=== PATIENT | male | born 1990 | race African-American/Black ===

== ENCOUNTER 2024-10-31 11:37 | Emergency (ER) | payer SELFPAY ==
[2024-10-31] VITALS (21 sets, daily range): BP systolic 137–144; BP diastolic 89–93; PULSE 62–84; TEMP 36.7–37.1; O2SAT 94–100; BMI 29.5
--- NOTE | 2024-10-31 11:42 | ED_ITS ---
HPI HPI - General Adult General Chief complaint: Seizure Stated complaint: SEIZURES Time Seen by Provider: 10/31/24 11:39 Source: patient, family, EMR and other Source information: EMS Mode of arrival: ambulance Limitations: no limitations History of Present Illness HPI narrative: Patient had a witnessed seizure at home today. He has a history of seizure disorder and he stopped taking his his anticonvulsant couple years ago. He states he has been little sleep deprived lately. He denies alcohol use. His significant other came in short while later and stated that she witnessed this. He came down the stairs and appeared confused and then he leaned against a wall and started to fall but she grabbed him and lowered him gently to the ground. He stiffened up and had some shakes and was frothing at the mouth. She timed this and she states it all lasted about 8 minutes. She states she has had a couple seizures 2 years ago also. Patient had some bleeding from his mouth and has complained of pain in his tongue. Related Data Previous Rx's ?Medication ?Instructions ?Recorded levetiracetam 500 mg tablet 500 mg PO BID #60 tabs 10/31/24 (Keppra) Allergies Allergy/AdvReac Type Severity Reaction Status Date / Time No Known Drug Allergies Allergy Verified 10/31/24 11:43 Opioid HPI Opioid Management Most Recent Opioid Data: Last Pain Scale 7 10/31/24 11:54 10/31/24 Last ED Pain Assessment 10/31/24 11:54 Ur Phencyclidine Scrn Negative (NEGATIVE) 10/31/24 13:20 10/21 10/14 Review of Systems ROS Status of ROS 10 or more systems reviewed and unremark able except as noted in history and below [facility] Medical History Seizures ?R56.9 - Unspecified convulsions (ICD-10) Social History Little interest or pleasure in doing things: not at all Feeling down, depressed, or hopeless: several days Exam Narrative Exam Narrative: Patient is awake and alert upon arrival. He does not appear postictal. Pupils are equal and reactive. The patient has superficial lacerations on the right lateral side of the tongue but no active bleeding from the tongue. There is no C-spine tenderness. Lung sounds are clear to auscultation bilaterally with good air entry. Heart has regular rate and rhythm. Abdomen is soft nontender withou t organomegaly. There is no facial asymmetry. Patient is alert and oriented with intact and clear speech and mentation. He moves all extremities actively. Constitutional Vital Signs, click to edit/add: Last Vital Signs Temp 98.0 F 10/31/24 11:43 Pulse 73 10/31/24 14:20 Resp 15 10/31/24 14:20 BP 144/89 H 10/31/24 11:43 Pulse Ox 95 10/31/24 14:20 O2 Del Method Room Air 10/31/24 11:43 Course Vital Signs Vital signs: Vital Signs Pulse Rate 84 10/31/24 11:42 Respiratory Rate 11 L 10/31/24 11:42 Pulse Oximetry 97 10/31/24 11:42 Temperature 98.0 F 10/31/24 11:43 Pulse Rate 73 10/31/24 14:20 Respiratory Rate 15 10/31/24 14:20 Blood Pressure 144/89 H 10/31/24 11:43 Pulse Oximetry 95 10/31/24 14:20 Oxygen Delivery Method Room Air 10/31/24 11:43 Medical Decision Making MDM Narrative Medical decision making narrative: Patient presents to the ED after experiencing a major motor seizure at home. Baseline labs are fairly nondiagnostic and he has recovered quickly from his postictal. Judging by the fact that he has been alert and oriented upon arrival for me. He is bolused with 2 g of Keppra IV and upon discharge I am placing him on Keppra 500 mg twice a day. He is advised to seek follow-up with primary care physician of choice and neurologist of choice. Patient may return to the ED anytime for worsening symptoms. Lab Data Labs: Lab Results 10/31/24 10/31/24 10/31/24 Range/Units 11:58 13:20 13:31 WBC 5.2 (4.0-11.0) 10^3/uL RBC 6.42 H (4.70-6.10) 10^6/uL Hgb 17.6 (14.0-18.0) g/dL Hct 52.1 (42.0-54.0) % MCV 81.2 (80.0-94.0) fL MCH 27.4 (25.9-34.0) pg MCHC 33.8 (29.9-35.2) g/dL RDW 13.0 (11.0-15.0) % Plt Count 191 (150-450) 10^3/uL MPV 10.1 (9.5-13.5) fL Neut % (Auto) 74.6 (43.0-75.0) % Lymph % (Auto) 14.9 L (20.5-60.0) % [place] % (Auto) 5.9 (1.7-12.0) % Eos % (Auto) 2.9 (0.9-7.0) % Baso % (Auto) 1.3 (0.2-2.0) % Neut # (Auto) 3.9 (1.4-6.5) 10^3/uL Lymph # (Auto) 0.8 L (1.2-3.8) 10^3/uL [place] # (Auto) 0.3 (0.3-0.8) 10^3/uL Eos # (Auto) 0.2 (0.0-0.7) 10^3/uL Baso # (Auto) 0.1 (0.0-0.1) 10^3/uL Abs Immat Gran (auto) 0.02 (0.00-0.03) 10^3/uL Imm/Tot Granulo (auto) 0.4 (0.0-0.5) % Sodium 139 (136-145) mmol/L Potassium 4.5 (3.5-5.1) mmol/L Chloride 102 (98-107) mmol/L Carbon Dioxide 23.1 (21.0-32.0) mmol/L Anion Gap 18.4 BUN 11.0 (7.0-18.0) mg/dL Creatinine 1.41 H (0.70-1.30) mg/dL Est GFR ( Amer) >60 (>=60 mL/min/1.73m^2) Est GFR (Non-Af Amer) 59 L (>=60 mL/min/1.73m^2) BUN/Creatinine Ratio 7.8 Glucose 146 H (74-106) mg/dL Calcium 9.3 (8.5-10.1) mg/dL Total Bilirubin 0.7 (0.2-1.0) mg/dL AST 28 (15-37) U/L ALT 28 (16-63) U/L Alkaline Phosphatase 58 (46-116) U/L Troponin I High Sens 8.1 26.3 (4.0-76.1) pg/mL Total Protein 8.1 (6.4-8.2) g/dL Albumin 4.2 (3.4-5.0) g/dL Globulin 3.9 g/dL Albumin/Globulin Ratio 1.1 Urine Color Lt. yellow (YELLOW) Urine Clarity Clear (CLEAR) Urine pH 6.0 (5.0-9.0) Ur Specific [place] 1.025 (1.005-1.025) Urine Protein Negative (NEG/TRACE) mg/dL Urine Glucose (UA) Negative (NEGATIVE) mg/dL Urine Ketones Negative (NEGATIVE) mg/dL Urine Occult Blood Small A (NEGATIVE) Urine Nitrite Negative (NEGATIVE) Urine Bilirubin Negative (NEGATIVE) Urine Urobilinogen 0.2 (0.2-1.0) EU/dL Ur Leukocyte Esterase Negative (NEGATIVE) Urine RBC 0-2 (0-2) #/HPF Urine WBC 0-2 A (NONE SEEN) #/HPF Ur Squamous Epith Cells None seen (NONE/RARE) #/LPF Urine Crystals None seen (None Seen) #/HPF Urine Bacteria None seen (NONE SEEN) #/HPF Urine Casts None seen (NONE SEEN) #/LPF Urine Mucus None seen (NONE SEEN) Ur Culture Indicated? No Urine Opiates Screen Negative (NEGATIVE) Ur Buprenorphine Scrn Negative (NEGATIVE) Ur Oxycodone Screen Negative (NEGATIVE) Urine Methadone Screen Negative (NEGATIVE) Ur Barbiturates Screen Negative (NEGATIVE) U Tricyclic Antidepress Negative (NEGATIVE) Ur Phencyclidine Scrn Negative (NEGATIVE) Ur Amphetamines Screen Negative (NEGATIVE) U Methamphetamines Scrn Negative (NEGATIVE) U Benzodiazepines Scrn Negative (NEGATIVE) Urine Cocaine Screen Negative (NEGATIVE) U Cannabinoids Screen Positive A (NEGATIVE) Ethanol Quant <3 mg/dL Discharge Plan Discharge Chief Complaint: Seizure Clinical Impression: Generalized seizure Patient Disposition: Home, Self-Care Time of Disposition Decision: 14:28 Condition: Fair Mode of Transportation: Private Vehicle Prescriptions / Home Meds: New levetiracetam [Keppra] 500 mg tablet 500 mg PO BID Qty: 60 0RF Print Language: Somali Instructions: Recurrent Seizures in Adults (ED) Additional Instructions: Follow-up with primary care physician and neurologist of choice as soon as possible. Start taking Keppra 500 mg twice a day. Return for worsening symptoms. Referrals: Physician,Non-Staff, MD [Primary Care Provider] - 1 week
--- NOTE | 2024-10-31 11:45 | ECG_ITS ---
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
[2024-10-31] MEDS: 0.9 % SODIUM CHLORIDE 1,000 ML 125 ML IV (12:06)
[2024-10-31] MEDS: LEVETIRACETAM 2,000 MG in 0.9 % SODIUM CHLORIDE 100 ML 480 MG IV (12:09)
[2024-10-31 12:10] LABS: Basophils Absolute Auto 0.1 10^3/uL (0.0-0.1); Basophils Percent Auto 1.3 % (0.2-2.0); Eosinophils Absolute Auto 0.2 10^3/uL (0.0-0.7); Eosinophils Percent Auto 2.9 % (0.9-7.0); Hematocrit 52.1 % (42.0-54.0); Hemoglobin 17.6 g/dL (14.0-18.0); Immature Granulocytes Abs Auto 0.02 10^3/uL (0.00-0.03); Immature Granulocytes Pct Auto 0.4 % (0.0-0.5); Lymphocytes Absolute Auto 0.8 10^3/uL (1.2-3.8); Lymphocytes Percent Auto 14.9 % (20.5-60.0); Mean Corpuscular HGB Conc 33.8 g/dL (29.9-35.2); Mean Corpuscular Hemoglobin 27.4 pg (25.9-34.0); Mean Corpuscular Volume 81.2 fL (80.0-94.0); Mean Platelet Volume 10.1 fL (9.5-13.5); Monocytes Absolute Auto 0.3 10^3/uL (0.3-0.8); Monocytes Percent Auto 5.9 % (1.7-12.0); Neutrophils Absolute Auto 3.9 10^3/uL (1.4-6.5); Neutrophils Percent Auto 74.6 % (43.0-75.0); Platelet Count 191 10^3/uL (150-450); Red Blood Count 6.42 10^6/uL (4.70-6.10); White Blood Count 5.2 10^3/uL (4.0-11.0)
[2024-10-31 12:34] LABS: Alanine Aminotransferase 28 U/L (16-63); Albumin Globulin Ratio 1.1; Albumin Level 4.2 g/dL (3.4-5.0); Alkaline Phosphatase 58 U/L (46-116); Anion Gap 18.4; Aspartate Amino Transferase 28 U/L (15-37); BUN Creatinine Ratio 7.8; Bilirubin Total 0.7 mg/dL (0.2-1.0); Calcium 9.3 mg/dL (8.5-10.1); Carbon Dioxide 23.1 mmol/L (21.0-32.0); Chloride 102 mmol/L (98-107); Estimated GFR (African America >60 (>=60 mL/min/1.73m^2); Estimated GFR (Non-African Ame 59 (>=60 mL/min/1.73m^2); Globulin 3.9 g/dL; Glucose 146 mg/dL (74-106); Potassium 4.5 mmol/L (3.5-5.1); Sodium 139 mmol/L (136-145); Total Protein 8.1 g/dL (6.4-8.2); Troponin I High Sensitivity 8.1 pg/mL (4.0-76.1)
[2024-10-31 12:37] LABS: Ethanol <3 mg/dL
[2024-10-31 13:38] LABS: Bilirubin Urine NEGATIVE (NEGATIVE); Blood Urine SMALL (NEGATIVE); Clarity Urine CLEAR (CLEAR); Color Urine LT. YELLOW (YELLOW); Glucose Urine UA NEGATIVE (NEGATIVE); Ketones Urine NEGATIVE (NEGATIVE); Leukocyte Esterase Urine NEGATIVE (NEGATIVE); Nitrite Urine NEGATIVE (NEGATIVE); Protein Urine NEGATIVE (NEG/TRACE); Specific Gravity Urine 1.025 (1.005-1.025); Urobilinogen Urine 0.2 EU/dL (0.2-1.0)
[2024-10-31 13:39] LABS: Urine Microscopic Indicated YES
[2024-10-31 13:48] LABS: Bacteria Urine NONE SEEN #/HPF (NONE SEEN); Cast Seen? NONE SEEN #/LPF (NONE SEEN); Crystals Seen? None Seen #/HPF (None Seen); Mucus Urine NONE SEEN (NONE SEEN); RBC Urine 0-2 #/HPF (0-2); Squamous Epithelial Cell Urine NONE SEEN #/LPF (NONE/RARE); Urine Culture Indicated NO; WBC Urine 0-2 #/HPF (NONE SEEN)
[2024-10-31 13:54] LABS: Amphetamine Screen Urine NEGATIVE (NEGATIVE); Barbiturates Screen Urine NEGATIVE (NEGATIVE); Benzodiazepines Screen Urine NEGATIVE (NEGATIVE); Buprenorphine Screen Urine NEGATIVE (NEGATIVE); Cannabinoid Screen Urine POSITIVE (NEGATIVE); Cocaine Screen Urine NEGATIVE (NEGATIVE); Methadone Screen Urine NEGATIVE (NEGATIVE); Methamphetamines Screen Urine NEGATIVE (NEGATIVE); Opiate Screen Urine NEGATIVE (NEGATIVE); Oxycodone Screen Urine NEGATIVE (NEGATIVE); Phencyclidine Screen Urine NEGATIVE (NEGATIVE); Tricyclic Antidepressant Urine NEGATIVE (NEGATIVE)
[2024-10-31 14:02] LABS: Troponin I High Sensitivity 26.3 pg/mL (4.0-76.1)
== END 2024-10-31 14:44 | disposition home or self-care (01) ==
PROVIDERS: Emergency Provider Emergency Medicine
DX: G40.409 Other generalized epilepsy and epileptic syndromes, not intractable, without status epilepticus (principal)
CPT/HCPCS: 36415; 80053; 80307; 80320; 81001; 84484; 85025; 93005; 96374; 99284; J1953